=== PATIENT | female | born 1995 | race Caucasian/White ===

== ENCOUNTER 2017-06-08 16:32 | Inpatient (IN) | payer OTHER ==
[~2017-06-08] VITALS: Ht 157.5 cm; Wt 66.7 kg
[2017-06-09] MEDS ORDERED: PRENATAL TABLE1 EAC2 PO (14:54)
== END 2017-06-14 14:22 | disposition home or self-care (01) | DRG 778 ==
LOC: OBS/DEL 16:32 → OB/GYN 06-09 14:04 → LDR 06-09 14:04 → OB/GYN 06-11 18:16
PROC: 4A1HXCZ Monitoring of Products of Conception, Cardiac Rate, External Approach (ICD-10-PCS; principal; 2017-06-09)
DX: O60.03 Preterm labor without delivery, third trimester (principal); Z3A.35 35 weeks gestation of pregnancy

== ENCOUNTER 2017-07-03 05:24 | Inpatient (IN) | payer OTHER ==
[~2017-07-03] VITALS: Ht 157.5 cm; Wt 66.7 kg
[~2017-07-03 05:24] MED LIST: PRENATAL TABLE1 EAC2 PO
[2017-07-06] MEDS ORDERED: IBUPROFEN400 MG PO (11:27)
== END 2017-07-06 12:31 | disposition home or self-care (01) | DRG 766 ==
LOC: LDR 05:24 → O/R 20:00 → OB/GYN 21:36
PROVIDERS: Obstetrics & Gynecology
PROC: 4A1HXCZ Monitoring of Products of Conception, Cardiac Rate, External Approach (ICD-10-PCS; 2017-07-03)
PROC: 10D00Z1 Extraction of Products of Conception, Low, Open Approach (ICD-10-PCS; principal; 2017-07-03 19:00)
PROC: 4A033R1 Measurement of Arterial Saturation, Peripheral, Percutaneous Approach (ICD-10-PCS; 2017-07-04)
DX: O76 Abnormality in fetal heart rate and rhythm complicating labor and delivery (principal); O69.81X0 Labor and delivery complicated by cord around neck, without compression, not applicable or unspecified; Z3A.39 39 weeks gestation of pregnancy; Z37.0 Single live birth

== ENCOUNTER → 2019-05-11 | Outpatient (CLI) | payer BC ==
[~2019-05-11] MED LIST changes: +IBUPROFEN400 MG PO
== END | disposition home or self-care (01) ==
LOC: PRENATAL 09:00
DX: O35.3XX1 Maternal care for (suspected) damage to fetus from viral disease in mother, fetus 1 (principal); Z3A.24 24 weeks gestation of pregnancy; O34.219 Maternal care for unspecified type scar from previous cesarean delivery; O65.5 Obstructed labor due to abnormality of maternal pelvic organs

== ENCOUNTER 2019-08-16 13:52 | Outpatient (CLI) | payer BC | END 2019-08-16 18:53 | disposition home or self-care (01) | LOC: OBS/DEL 13:52 | DX: O46.093 Antepartum hemorrhage with other coagulation defect, third trimester (principal); D69.49 Other primary thrombocytopenia ==

== ENCOUNTER 2019-08-19 15:19 | Inpatient (IN) | payer BC ==
[~2019-08-19] VITALS: Ht 160 cm; Wt 68.9 kg
[2019-08-21] MEDS ORDERED: DULCOLAX5 MG PO (08:51)
== END 2019-08-21 12:08 | disposition home or self-care (01) | DRG 788 ==
LOC: LDR 15:19 → SURG-SUITE 18:20
PROVIDERS: ADMIT Obstetrics & Gynecology
PROC: 4A1HXCZ Monitoring of Products of Conception, Cardiac Rate, External Approach (ICD-10-PCS; 2019-08-19)
PROC: 10D00Z1 Extraction of Products of Conception, Low, Open Approach (ICD-10-PCS; principal; 2019-08-19 16:00)
DX: O99.12 Other diseases of the blood and blood-forming organs and certain disorders involving the immune mechanism complicating childbirth (principal); D69.49 Other primary thrombocytopenia; Z3A.38 38 weeks gestation of pregnancy; Z37.0 Single live birth